=== PATIENT | male | born 1950 | race Caucasian/White ===

== ENCOUNTER 2017-01-11 21:56 | Emergency (ER) | payer OTHER ==
[~2017-01-11] VITALS: Ht 180.3 cm; Wt 72.6 kg
--- NOTE | 2017-01-11 21:59 | NUR ---
pt walked into ER c/o needing assistance placing eyedrops in right eye post cataract surgery... pt is alert, oriented x 4, no resp distress noted or reported upon assessment... md at bedside...
[2017-01-11] MEDS ORDERED: MOXI3DRO OP (22:08)
[2017-01-11] MEDS ORDERED: DICL2.5D RIGHTEYE (22:08)
[2017-01-11] MEDS ORDERED: PRED5DRO7 OP (22:08)
--- NOTE | 2017-01-11 22:45 | NUR ---
pt teaching done, new method of inserting eyedrops into corner of eye, advised to wipe drops after every use... pt stated he understood... pt successfully completed return demonstration...
--- NOTE | 2017-01-11 23:09 | NUR ---
Patient discharged to home in stable conditon. Written and verbal after care instructions given. Patient verbalizes understanding of instructions. pt walked out of ER unassisted with belongings at side...
[2017-01-11 23:10] VITALS: BP 134/97
== END 2017-01-11 23:12 | disposition home or self-care (01) ==
LOC: ER 21:59
DX: H57.8 Other specified disorders of eye and adnexa (principal)